=== PATIENT | male | born 1955 | race Caucasian/White ===

== ENCOUNTER 2020-05-14 07:21 | Day surgery (SDC) | payer OTHER ==
[~2020-05-14] VITALS: Ht 175.3 cm; Wt 68.0 kg
[~2020-05-14 07:21] MED LIST: ATOR40TA PO; ATOR80 PO; Aspirin EC81 MG PO; DOXY100 PO; LISI5 PO; METO25 PO; TICA90TA PO
[2020-05-14] MEDS ORDERED: ATOR40TA PO (07:57)
--- NOTE | 2020-05-14 08:04 | NUR ---
05/14/20 0804 Aminah Adams AT 0747. KAYCEE AT 0750.
== END 2020-05-14 09:48 | disposition home or self-care (01) ==
LOC: ORSCSDS 07:21
PROVIDERS: Ophthalmology
PROC: 08RJ3JZ Replacement of Right Lens with Synthetic Substitute, Percutaneous Approach (ICD-10-PCS; principal; 2020-05-14 08:45)
DX: H25.11 Age-related nuclear cataract, right eye (principal); I25.2 Old myocardial infarction; Z87.891 Personal history of nicotine dependence; Z79.82 Long term (current) use of aspirin; Z79.899 Other long term (current) drug therapy
CPT/HCPCS: A9270; J2001; J2250; J3010; J3301; J7040; V2632

== ENCOUNTER 2022-05-03 11:35 | Day surgery (SDC) | payer MEDICARE ==
[~2022-05-03] VITALS: Ht 177.8 cm; Wt 67.3 kg
== END 2022-05-03 15:39 | disposition home or self-care (01) ==
LOC: ORSCSDS 11:35
PROVIDERS: Internal Medicine Gastroenterology
PROC: 0DBN8ZX Excision of Sigmoid Colon, Via Natural or Artificial Opening Endoscopic, Diagnostic (ICD-10-PCS; principal; 2022-05-03 12:45)
PROC: 0DBL8ZX Excision of Transverse Colon, Via Natural or Artificial Opening Endoscopic, Diagnostic (ICD-10-PCS; principal; 2022-05-03 12:45)
PROC: 0D5H8ZZ Destruction of Cecum, Via Natural or Artificial Opening Endoscopic (ICD-10-PCS; principal; 2022-05-03 12:45)
DX: Z12.11 Encounter for screening for malignant neoplasm of colon (principal); Z86.010 Personal history of colon polyps; D12.5 Benign neoplasm of sigmoid colon; D12.3 Benign neoplasm of transverse colon; D12.2 Benign neoplasm of ascending colon; K63.5 Polyp of colon; K57.30 Diverticulosis of large intestine without perforation or abscess without bleeding; K64.8 Other hemorrhoids; K55.20 Angiodysplasia of colon without hemorrhage; F17.210 Nicotine dependence, cigarettes, uncomplicated; I25.10 Atherosclerotic heart disease of native coronary artery without angina pectoris; Z79.899 Other long term (current) drug therapy; Z79.82 Long term (current) use of aspirin
CPT/HCPCS: 88305; J2704; J7120

== ENCOUNTER 2022-06-08 15:13 | Observation (INO) | payer MEDICARE ==
[~2022-06-08] VITALS: Ht 175.3 cm; Wt 68.0 kg
[2022-06-08 15:46] LABS: BASOPHILS ABSOLUTE AUTO 0.08 K/mm3 (0.00-0.23); BASOPHILS PERCENT AUTO 1 % (0-2); EOSINOPHILS ABSOLUTE AUTO 0.16 K/mm3 (0.00-0.68); EOSINOPHILS PERCENT AUTO 2 % (0-6); Hematocrit 40.2 % (37.0-53.0); Hemoglobin 13.8 g/dL (13.5-17.5); IMMATURE GRAN ABSOLUTE AUTO 0.04 K/mm3 (0.00-0.10); IMMATURE GRAN PERCENT AUTO 1 % (0-1); LYMPHOCYTES ABSOLUTE AUTO 1.54 K/mm3 (0.84-5.20); LYMPHOCYTES PERCENT AUTO 19 % (21-46); MONOCYTES ABSOLUTE AUTO 0.67 K/mm3 (0.16-1.47); MONOCYTES PERCENT AUTO 8 % (4-13); Mean Corpuscular HGB 36.8 pg (26.0-34.0); Mean Corpuscular HGB Conc 34.3 g/dL (31.5-36.5); Mean Corpuscular Volume 107 fL (80-100); Mean Platelet Volume 10.1 fL (9.1-12.4); NEUTROPHILS ABSOLUTE AUTO 5.44 K/mm3 (1.96-9.15); NEUTROPHILS PERCENT AUTO 69 % (41-73); Platelet Count 205 K/mm3 (150-400); RDW Coefficient Variation 13.2 % (11.7-14.2); RDW Standard Deviation 53.5 fL (35.1-46.3); Red Blood Cell Count 3.75 M/mm3 (4.30-5.90); White Blood Cell Count 7.93 K/mm3 (4.00-11.30)
[2022-06-08 16:00] LABS: Albumin, Blood 3.8 g/dL (3.4-5.0); Albumin/Globulin Ratio 1.2 (0.8-1.8); Bilirubin, Total 0.7 mg/dL (0.1-1.0); Calcium, Blood 9.3 mg/dL (8.5-10.1); Creatinine, Blood 1.05 mg/dL (0.60-1.20); Globulin, Blood 3.3 g/dL (2.2-4.0); Potassium, Blood 4.1 mmol/L (3.5-5.5); Total Protein, Blood 7.1 g/dL (6.4-8.2)
[2022-06-08 22:03] VITALS: BP 130/88
--- NOTE | 2022-06-09 04:00 | NUR ---
SHIFT SUMMARY PT ARRIVED THE ED THIS EVENING, AOX4 AND INDEPENDENT IN THEH ROOM. HE HAS BEEN NPO SINCE HIS ARRIVAL, PENDING A STRESS TEST THIS AM. HE HAS HAD NO C/O CP/SOB/CHEST TIGHTNESS/N/V THIS SHIFT. HE HAS BEEN SLEEPING SINCE ADMISSION DOCUMENTATION WAS COMPLETE. WILL REPORT TO ONCOMING NURSE.
[2022-06-09 08:02] VITALS: BP 118/85
[2022-06-09 16:42] VITALS: BP 118/77
--- NOTE | 2022-06-09 17:52 | NUR ---
SHIFT SUMMARY PATIENT DENIES PAIN, NAUSEA, AND SHORTNESS OF BREATH. UP INDEPENDENT IN ROOM. STRESS TEST COMPLETED TODAY. CARDIOLOGY CONSULTED. HEPARIN DRIP ORDERED. NPO AT MIDNIGHT FOR ANGIO TOMORROW. PLEASANT AND COOPERATIVE WITH CARE.
[2022-06-09 19:14] LABS: International Normalized Ratio 1.02; Prothrombin Time Results 10.7 Sec (9.7-11.5)
[2022-06-09 21:41] VITALS: BP 123/91
[2022-06-10] VITALS (10 sets, daily range): BP systolic 112–144; BP diastolic 70–86
--- NOTE | 2022-06-10 04:12 | NUR ---
SHIFT SUMMARY PT IS AOX4 AND INDEPENDENT IN THE ROOM. HE HAS BEEN NPO SINCE MIDNIGHT, PENDING AN ANGIOGRAM DURING DAY SHIFT TODAY. HE IS ALSO ON A HEPARIN DRIP, CHANGED ONCE THIS SHIFT, CONFIRMED WITH SARAH ULLOA RN. PT HAS TOLERATED IT WELL AND HAS SLEPT T/O THE ENTIRE NIGHT. NO COMPLAINTS FROM THE PT. WILL REPORT TO ONCOMING NURSE.
--- NOTE | 2022-06-10 06:08 | NUR ---
NOTE; PER ORDER, HEPARIN STOPPED AT 0600 AND PHARMACY NOTIFIED.
--- NOTE | 2022-06-10 10:03 | NUR ---
REPORT PROVIDED TO KATHERIN RN PCU
--- NOTE | 2022-06-10 13:12 | NUR ---
CARE ASSUMPTION/ARRIVAL TO PCU This RN recived repoprt from medical floor RN. Patient arrived from catheterization laboratory technician to PCU via wheelchair and transfered to PCU bed indepdently at 1000. This RN received bedside report from catheterization laboratory technician RN. Patient has right radial access site with TR band in place. This RN fully recovered the TR band and will remove band once an hour has passed; the site is soft nontender, no swelling pain or bleeding or brusiing. Patient is alert and oriented x4. patient reports no chest pain/pressure, shortness of breath, or pain. patient is able to make needs known and perform ADLs indepdently. This RN has patient call before getting up since patient is s/p anigo. see shift assessment for further detials. Plan of care is up to date.
[2022-06-10] MEDS ORDERED: METO25ER PO (17:00)
[2022-06-10] MEDS ORDERED: TICA90TA PO (17:01)
--- NOTE | 2022-06-10 17:46 | NUR ---
DISCHARGE/SHIFT SUMMARY Patient neuro remained intact throughout the day and stay in pcu until discharge. patient right radial site recovered with no complications, no bruising, bleeding, and swelling or tenderness. patient educated on right radial site care and activity restrictions. patient verbalized understanding. medications faxed over to [facility] and patient educated on them. no acute changes. discharge education performed by this rn. patient left with all belongings and in no distess.
== END 2022-06-10 17:42 | disposition home or self-care (01) ==
LOC: ER 15:13 → MEDS 15:14 → PCU 06-10 10:20
PROVIDERS: Emergency Medicine; Internal Medicine; ADMIT Internal Medicine
DX: I25.110 Atherosclerotic heart disease of native coronary artery with unstable angina pectoris (principal); T82.855A Stenosis of coronary artery stent, initial encounter; Y71.8 Miscellaneous cardiovascular devices associated with adverse incidents, not elsewhere classified; I24.9 Acute ischemic heart disease, unspecified; I10 Essential (primary) hypertension; I25.2 Old myocardial infarction; F17.210 Nicotine dependence, cigarettes, uncomplicated; Z95.5 Presence of coronary angioplasty implant and graft; Z79.82 Long term (current) use of aspirin; Z79.899 Other long term (current) drug therapy
CPT/HCPCS: 36415; 37252; 71046; 76937; 78452; 80053; 83735; 84484; 85025; 85347; 85610; 85730; 93005; 93010; 93017; 93454; 94640; 94664; 94760; 94762; 96372; 96374; 96376; 99152; 99153; 99285-25; A9270; A9500; C1725; C1753; C1769; C1874; C1887; C1894; C9600; G0378; J0706; J1644; J1650; J2250; J2785; J3010; J7030; J7050; Q9967

== ENCOUNTER 2023-06-08 09:04 | Day surgery (SDC) | payer MEDICARE ==
[~2023-06-08] VITALS: Ht 175.3 cm; Wt 65.6 kg
[~2023-06-08 09:04] MED LIST changes: +Lactated Ringer's 1,000 ML IV ONE; +METO25ER PO; +propofoL 50 ML IV ONE
[2023-06-08] MEDS ORDERED: Lactated Ringer's 1,000 ML IV ONE (10:10)
[2023-06-08 12:07] VITALS: BP 110/88
[2023-06-08] MEDS ORDERED: ePHEDrine Sulfate 50 MG/ML 1ML Injection ONE (13:29)
== END 2023-06-08 12:09 | disposition home or self-care (01) ==
LOC: ORSCSDS 09:04
PROVIDERS: Internal Medicine Gastroenterology
PROC: 0DBN8ZX Excision of Sigmoid Colon, Via Natural or Artificial Opening Endoscopic, Diagnostic (ICD-10-PCS; principal; 2023-06-08 10:30)
PROC: 0DBM8ZX Excision of Descending Colon, Via Natural or Artificial Opening Endoscopic, Diagnostic (ICD-10-PCS; principal; 2023-06-08 10:30)
PROC: 0DBH8ZX Excision of Cecum, Via Natural or Artificial Opening Endoscopic, Diagnostic (ICD-10-PCS; principal; 2023-06-08 10:30)
PROC: 0DBP8ZX Excision of Rectum, Via Natural or Artificial Opening Endoscopic, Diagnostic (ICD-10-PCS; principal; 2023-06-08 10:30)
PROC: 0DBL8ZX Excision of Transverse Colon, Via Natural or Artificial Opening Endoscopic, Diagnostic (ICD-10-PCS; principal; 2023-06-08 10:30)
DX: Z12.11 Encounter for screening for malignant neoplasm of colon (principal); Z86.010 Personal history of colon polyps; D12.0 Benign neoplasm of cecum; D12.2 Benign neoplasm of ascending colon; D12.3 Benign neoplasm of transverse colon; D12.4 Benign neoplasm of descending colon; K63.5 Polyp of colon; K62.1 Rectal polyp; E78.5 Hyperlipidemia, unspecified; I10 Essential (primary) hypertension; I25.10 Atherosclerotic heart disease of native coronary artery without angina pectoris; F17.210 Nicotine dependence, cigarettes, uncomplicated; I25.2 Old myocardial infarction; Z79.899 Other long term (current) drug therapy; Z79.82 Long term (current) use of aspirin
CPT/HCPCS: 88305; J2704; J7120

== ENCOUNTER 2024-08-19 06:45 | Day surgery (SDC) | payer MEDICARE ==
[~2024-08-19] VITALS: Ht 175.3 cm; Wt 63.4 kg
[~2024-08-19 06:45] MED LIST changes: -Lactated Ringer's 1,000 ML IV ONE; -propofoL 50 ML IV ONE
[2024-08-19 09:50] VITALS: BP 108/66
== END 2024-08-19 09:53 | disposition home or self-care (01) ==
LOC: ORSCSDS 06:45
PROVIDERS: Specialist
PROC: 0DBH8ZX Excision of Cecum, Via Natural or Artificial Opening Endoscopic, Diagnostic (ICD-10-PCS; principal; 2024-08-19 08:30)
PROC: 0DBN8ZX Excision of Sigmoid Colon, Via Natural or Artificial Opening Endoscopic, Diagnostic (ICD-10-PCS; principal; 2024-08-19 08:30)
PROC: 0DBL8ZX Excision of Transverse Colon, Via Natural or Artificial Opening Endoscopic, Diagnostic (ICD-10-PCS; principal; 2024-08-19 08:30)
PROC: 0DBM8ZX Excision of Descending Colon, Via Natural or Artificial Opening Endoscopic, Diagnostic (ICD-10-PCS; principal; 2024-08-19 08:30)
DX: Z12.11 Encounter for screening for malignant neoplasm of colon (principal); Z86.0101 Personal history of adenomatous and serrated colon polyps; D12.0 Benign neoplasm of cecum; D12.3 Benign neoplasm of transverse colon; D12.4 Benign neoplasm of descending colon; K64.8 Other hemorrhoids; K63.5 Polyp of colon; K57.30 Diverticulosis of large intestine without perforation or abscess without bleeding; I25.10 Atherosclerotic heart disease of native coronary artery without angina pectoris; E78.5 Hyperlipidemia, unspecified; I10 Essential (primary) hypertension; C61 Malignant neoplasm of prostate; Z79.899 Other long term (current) drug therapy; Z79.82 Long term (current) use of aspirin
CPT/HCPCS: 88305; J2704; J7120